=== PATIENT | male | born 1965 | race Caucasian/White ===

== ENCOUNTER 2016-12-05 18:48 | Emergency (ER) | payer OTHER ==
[~2016-12-05] VITALS: Ht 160 cm; Wt 63.5 kg
[2016-12-05 18:52] VITALS: BP 100/66; PULSE 92; RESP 18; TEMP 98; O2SAT 99
[2016-12-05 19:34] VITALS: BP 100/66; PULSE 92; RESP 18; TEMP 98; O2SAT 99
== END 2016-12-05 19:34 ==
LOC: SED 18:48
DX: Z02.89 Encounter for other administrative examinations (principal); S20.311A Abrasion of right front wall of thorax, initial encounter; X58.XXXA Exposure to other specified factors, initial encounter; Y93.89 Activity, other specified; Y92.89 Other specified places as the place of occurrence of the external cause; Y99.8 Other external cause status
CPT/HCPCS: 99283

== ENCOUNTER 2016-12-05 21:35 | Emergency (ER) | payer OTHER ==
[~2016-12-05] VITALS: Ht 165.1 cm; Wt 68.0 kg
[2016-12-05 21:44] VITALS: BP 115/79; PULSE 86; RESP 14; TEMP 98.4; O2SAT 98
[2016-12-05] MEDS ORDERED: IBUPROFEN 600 MG TABLET PO ONE (23:00)
[2016-12-05 23:01] VITALS: BP 115/79; PULSE 86; RESP 14; TEMP 98.4; O2SAT 98
== END 2016-12-05 23:01 ==
LOC: SED 21:35
DX: R10.9 Unspecified abdominal pain (principal)
CPT/HCPCS: 99283

== ENCOUNTER 2016-12-06 15:50 | Emergency (ER) | payer OTHER ==
[~2016-12-06] VITALS: Ht 165.1 cm; Wt 70.3 kg
[2016-12-06 15:50] VITALS: BP_SYST 158
[2016-12-06] MEDS ORDERED: IBUPROFEN 600 MG TABLET PO ONE (16:15)
[2016-12-06 16:25] VITALS: BP_SYST 137
== END 2016-12-06 16:25 ==
LOC: SED 15:50
DX: Z02.89 Encounter for other administrative examinations (principal); R10.9 Unspecified abdominal pain
CPT/HCPCS: 99283